=== PATIENT | male | born 1960 | race Caucasian/White ===

== ENCOUNTER 2024-07-01 08:08 | Inpatient (IN) | payer OTHER, SELFPAY ==
[2024-07-01] VITALS (26 sets, daily range): BP systolic 150–200; BP diastolic 74–98; PULSE 63–100; TEMP 36.4–36.7; O2SAT 89–99; BMI 24.2; BMI 24.4
--- NOTE | 2024-07-01 08:20 | ECG_ITS ---
[facility] Test Date: 2024-07-01 Pat Name: ANISH IRAHETA Department: Room: - Gender: Male Ict Development Manager: : 1960 Requested By: [id number] Order Number: [id number] Reading MD: GET ONTIVEROS Measurements Intervals [facility] Rate: 91 P: 71 MO: 152 QRS: 65 QRSD: 94 T: 99 QT: 358 QTc: 407 Interpretive Statements 1100 Sinus rhythm 3334 Anteroseptal myocardial infarction, age undetermined 6120 Possible right atrial enlargement 6220 Possible left atrial enlargement 9150 abnormal ECG No previous ECG available for comparison Electronically Signed On 07-01-2024 12:10:02 EDT by GET ONTIVEROS
[2024-07-01 08:35] LABS: Basophils Percent Auto 0.3 % (0.2-2.0); Eosinophils Percent Auto 0.3 % (0.9-7.0); Hematocrit 45.5 % (42.0-54.0); Hemoglobin 15.6 g/dL (14.0-18.0); Immature Granulocytes Abs Auto 0.01 10^3/uL (0.00-0.03); Immature Granulocytes Pct Auto 0.1 % (0.0-0.5); Lymphocytes Absolute Auto 1.2 10^3/uL (1.2-3.8); Lymphocytes Percent Auto 17.1 % (20.5-60.0); Mean Corpuscular HGB Conc 34.3 g/dL (29.9-35.2); Mean Corpuscular Hemoglobin 31.5 pg (25.9-34.0); Mean Corpuscular Volume 91.7 fL (80.0-94.0); Mean Platelet Volume 9.4 fL (9.5-13.5); Monocytes Absolute Auto 0.4 10^3/uL (0.3-0.8); Monocytes Percent Auto 5.9 % (1.7-12.0); Neutrophils Absolute Auto 5.5 10^3/uL (1.4-6.5); Neutrophils Percent Auto 76.3 % (43.0-75.0); Platelet Count 251 10^3/uL (150-450); Red Blood Count 4.96 10^6/uL (4.70-6.10); White Blood Count 7.3 10^3/uL (4.0-11.0)
[2024-07-01 08:45] LABS: Magnesium 2.1 mg/dL (1.8-2.4)
[2024-07-01 08:46] LABS: Ethanol <3 mg/dL
[2024-07-01 08:49] LABS: INR 0.98; Prothrombin Time 10.4 sec (9.0-11.6)
[2024-07-01 08:51] LABS: Alanine Aminotransferase 31 U/L (16-63); Alkaline Phosphatase 98 U/L (46-116); Anion Gap 12.3; Aspartate Amino Transferase 21 U/L (15-37); BUN Creatinine Ratio 15.5; Bilirubin Total 0.4 mg/dL (0.2-1.0); Calcium 9.2 mg/dL (8.5-10.1); Carbon Dioxide 25.4 mmol/L (21.0-32.0); Chloride 104 mmol/L (98-107); Estimated GFR (African America >60 (>=60 mL/min/1.73m^2); Estimated GFR (Non-African Ame >60 (>=60 mL/min/1.73m^2); Glucose 133 mg/dL (74-106); Potassium 3.7 mmol/L (3.5-5.1); Sodium 138 mmol/L (136-145)
[2024-07-01 08:55] LABS: Troponin I High Sensitivity 9.1 pg/mL (4.0-76.1)
--- NOTE | 2024-07-01 09:13 | ED_ITS ---
HPI - Dizziness General Chief Complaint: Dizziness Stated Complaint: BLURRY VISION Time Seen by Provider: 07/01/24 08:15 Source: patient Mode of arrival: walk-in Limitations: no limitations History of Present Illness HPI Narrative: The patient is a 63 years old male who does not take any medication at home. Has a history of coronary artery disease states his most multiple stent in addition to history of smoking cigarette 1 and half pack of cigarette daily, he also had a history of old stroke 5 years ago. Patient is coming to us with the complaint of blurry vision bilaterally he mentioned that he noticed that yesterday morning he woke up, when he went to sleep the day before yesterday on Friday he was not having any complaint. Patient frequently have headaches and usually the headache is behind his eyes and he did had some headache yesterday. He also mentioned that having some chest pressure frequently during the week. The patient does not take any blood pressure medication because he ran out of it and he mentioned that he did not fill it because of financial issues The patient is complaining of left hand weakness that he mentioned that this is all due to his history of carpal tunnel Related Data Home Medications ?Medication ?Instructions ?Recorded ?Confirmed No Known Home Medications 07/01/24 07/01/24 Allergies Allergy/AdvReac Type Severity Reaction Status Date / Time No Known Drug Allergies Allergy Verified 07/01/24 08:12 Review of Systems ROS Status of ROS 10 or more systems reviewed and unremark able except as noted in history and below [facility] Medical History (Updated 07/01/24 @ 09:45 by Lawrence Beth) History of CVA (cerebrovascular accident) ?Z86.73 - Personal history of transient ischemic attack (TIA), and cerebral infarction without residual deficits (ICD-10) Hypertension ?I10 - Essential (primary) hypertension (ICD-10) Surgical History (Updated 07/01/24 @ 08:43 by Lawrence Beth) H/O heart artery stent ?Z95.5 - Presence of coronary angioplasty implant and graft (ICD-10) Social History Little interest or pleasure in doing things: not at all Feeling down, depressed, or hopeless: not at all Exam Narrative Exam Narrative: Nurses notes and vital signs reviewed and patient is not hypoxic. General: Well-appearing and in no apparent distress. Skin: Warm, dry, no pallor noted. No rash. Head: Normocephalic, atraumatic. Neck: Supple, non-tender. Eye: Pupils are equal, round and EOMI. No scleral icterus. Ears, Nose, Mouth, and Throat: TM are clear, no nasal mucosal hypertrophy. Oral mucosa is moist, no posterior oropharynx erythema, uvula is mid-line Cardiovascular: Regular Rate and Rhythm without murmur, gallop or rub. Respiratory: No accessory muscle use or respiratory distress. Lungs are clear to auscultation, no wheezing, rales or rhonchi Chest Wall: no tenderness Back: No midline thoracic or lumbar vertebral tenderness. No CVA tenderness Musculoskeletal: normal ROM, no calf or popliteal tenderness, no lower extremity edema/swelling GI: Abdomen is soft, non-distended. Normal bowel sounds. No masses appreciated. No tenderness to palpation. No rebound, guarding, or rigidity noted. Neurological: A&O x4. No cranial nerve dysfunction observed. No truncal ataxia. Moves all extremities. Sensation intact. Psychiatric: Cooperative and interactive. Normal mood and affect. Constitutional Vital Signs, click to edit/add: Last Vital Signs Temp 98.1 F 07/01/24 08:14 Pulse 82 07/01/24 09:52 Resp 20 07/01/24 09:52 BP 180/80 H 07/01/24 09:52 Pulse Ox 97 07/01/24 09:52 O2 Del Method Room Air 07/01/24 09:52 Course Vital Signs Vital signs: Vital Signs Temperature 98.1 F 07/01/24 08:14 Pulse Rate 94 H 07/01/24 08:14 Respiratory Rate 20 07/01/24 08:14 Blood Pressure 200/98 H 07/01/24 08:14 Pulse Oximetry 99 07/01/24 08:14 Oxygen Delivery Method Room Air 07/01/24 08:14 Temperature 98.1 F 07/01/24 08:14 Pulse Rate 82 07/01/24 09:52 Respiratory Rate 20 07/01/24 09:52 Blood Pressure 180/80 H 07/01/24 09:52 Pulse Oximetry 97 07/01/24 09:52 Oxygen Delivery Method Room Air 07/01/24 09:52 MDM - Dizziness MDM Narrative Medical decision making narrative: The patient NIH score upon arrival is 0--------- and his last known well is Friday evening which is more than [address] head shows multiple strokes none of them is new It was noted that the patient blood pressure is 200 systolic Patient case was discussed with teleneurology and Dr Kimball recommended to con trol the blood pressure to around 180 right now systolic, and make sure that the patient started on aspirin and he will be admitted to get the further workup CBC and chemistry showed no acute pathology The patient EKG showing sinus rhythm with a heart rate of [address] elevation or depression Troponin was negative The patient vision acuity was 20/100 in both eyes and 20/100 in each eye as well by itself The patient blood pressure is controlled with hydralazine in the ER 1 dose of 10 mg IV and mentioned that after his blood pressure getting control that his blurry vision is at his baseline blurry vision due to near sight vision hx as he wear glassed for near vision Patient case discussed with and she agrees on admitting the pt Lab Data Labs: Lab Results 07/01/24 Range/Units 08:23 WBC 7.3 (4.0-11.0) 10^3/uL RBC 4.96 (4.70-6.10) 10^6/uL Hgb 15.6 (14.0-18.0) g/dL Hct 45.5 (42.0-54.0) % MCV 91.7 (80.0-94.0) fL MCH 31.5 (25.9-34.0) pg MCHC 34.3 (29.9-35.2) g/dL RDW 14.0 (11.0-15.0) % Plt Count 251 (150-450) 10^3/uL MPV 9.4 L (9.5-13.5) fL Neut % (Auto) 76.3 H (43.0-75.0) % Lymph % (Auto) 17.1 L (20.5-60.0) % [place] % (Auto) 5.9 (1.7-12.0) % Eos % (Auto) 0.3 L (0.9-7.0) % Baso % (Auto) 0.3 (0.2-2.0) % Neut # (Auto) 5.5 (1.4-6.5) 10^3/uL Lymph # (Auto) 1.2 (1.2-3.8) 10^3/uL [place] # (Auto) 0.4 (0.3-0.8) 10^3/uL Eos # (Auto) 0.0 (0.0-0.7) 10^3/uL Baso # (Auto) 0.0 (0.0-0.1) 10^3/uL Abs Immat Gran (auto) 0.01 (0.00-0.03) 10^3/uL Imm/Tot Granulo (auto) 0.1 (0.0-0.5) % PT 10.4 (9.0-11.6) sec INR 0.98 Sodium 138 (136-145) mmol/L Potassium 3.7 (3.5-5.1) mmol/L Chloride 104 (98-107) mmol/L Carbon Dioxide 25.4 (21.0-32.0) mmol/L Anion Gap 12.3 BUN 15.0 (7.0-18.0) mg/dL Creatinine 0.97 (0.70-1.30) mg/dL Est GFR ( Amer) >60 (>=60 mL/min/1.73m^2) Est GFR (Non-Af Amer) >60 (>=60 mL/min/1.73m^2) BUN/Creatinine Ratio 15.5 Glucose 133 H (74-106) mg/dL Calcium 9.2 (8.5-10.1) mg/dL Magnesium 2.1 (1.8-2.4) mg/dL Total Bilirubin 0.4 (0.2-1.0) mg/dL AST 21 (15-37) U/L ALT 31 (16-63) U/L Alkaline Phosphatase 98 (46-116) U/L Troponin I High Sens 9.1 (4.0-76.1) pg/mL Total Protein 8.0 (6.4-8.2) g/dL Albumin 4.0 (3.4-5.0) g/dL Globulin 4.0 g/dL Albumin/Globulin Ratio 1.0 Ethanol Quant <3 mg/dL Discharge Plan Discharge Chief Complaint: Dizziness Clinical Impression: Blurred vision, bilateral, Hypertensive emergency, Stroke-like symptom Time of Disposition Decision: 09:29 Prescriptions / Home Meds: No Action No Known Home Medications Print Language: Arabic Referrals: Physician,Non-Staff, MD [Primary Care Provider] - 1 week
[2024-07-01] MEDS: ASPIRIN 81 MG TAB.CHEW 324 MG PO (09:23)
[2024-07-01] MEDS: HYDRALAZINE HCL 20 MG/ML VIAL 10 MG IVP (09:23)
--- NOTE | 2024-07-01 10:51 | CA_ITS ---
Patient Name: ANISH IRAHETA MR#: [id number] : 1960 Exam Date: 07/01/2024 Ordering Doctor: GAIL RIZVI . ECHOCARDIOGRAM REPORT PROCEDURE: CA ECHO DOPPLER COMPLETE INDICATIONS: Hypertensive urgency, h/o CVA, cardiac stents, smoker COMPARISON: None. DESCRIPTION: COMPLETE ECHOCARDIOGRAM Real-time transthoracic echocardiography with 2D, M-mode, spectral and color flow Doppler performed. QUALITY: Technically difficult due patient's condition. LEFT VENTRICLE: Normal chamber size. Mild concentric left ventricular hypertrophy. LV EF: Global left ventricular systolic function is difficult to assess but appears preserved; visually estimated ejection fraction is 55-60%. Unable to assess regional wall motion abnormalities. DIASTOLIC: Unable to assess diastolic function. ATRIAL SEPTUM: Visually appears intact. LEFT ATRIUM: Mild dilatation. RIGHT ATRIUM: Normal chamber size. RIGHT VENTRICLE: Normal chamber size. Normal systolic function. TRICUSPID VALVE: Normal mobility and thickness. No stenosis with no regurgitation. Unable to assess right-sided pressures due to lack of measurable tricuspid regurgitation. MITRAL VALVE: Normal mobility and thickness. No evidence of mitral valve stenosis. There is no mitral annular calcification. No mitral regurgitation. AORTIC VALVE: Normal trileaflet appearance. Thickened aortic valve. Normal leaflet mobility. No evidence of aortic valve stenosis. No aortic regurgitation. AORTIC ROOT: Normal diameter and appearance. Ascending aorta is normal in size. PULMONIC VALVE: Normal thickness and mobility. No stenosis. No regurgitation. PERICARDIUM: No evidence of pericardial effusion. IVC: Collapses with inspirations. IVC is normal in size. CONCLUSION: 1. Global left ventricular systolic function is difficult to assess but appears preserved; visually estimated ejection fraction is 55-60% 2. Normal right ventricular size and systolic function 3. Mild left atrial dilatation 4. Mild left ventricular hypertrophy 5. Valves are poorly seen; no significant valvular abnormalities Adult Echocardiography Procedure Report Left Ventricle LVEDD (3.7 - 5.6 cm): 4.41 cm LVESD (2.2 - 4.0 cm): 3.05 cm LVIVS thickness (0.6 - 1.2 cm): 1.18 cm LVPW thickness (0.5 - 1.0 cm): 1.27 cm e': 0.11 m/s E - e': 4.46 LVOT Max Gradient: 2.27 mm[Hg] LVOT Area (cm2): 0.75 m/s Peak Velocity (LVOT): 0.75 m/s Mean Velocity (LVOT): 0.48 m/s LVOT Diameter 2.38 cm Left Atrium LA Volume Index (2D A2C): 41.34 ml/m2 Left Atrium Systolic Dimension: 2.89 cm Mitral Valve MV E to A Ratio: 0.75 Mitral Valve A-Wave Peak Velocity: 0.66 m/s Mitral Valve E-Wave Peak Velocity: 0.50 m/s Right Ventricle Aorta AO Root Diam: 3.61 cm Ascending Ao Diam: 3.48 cm Aortic Valve AoV Area (Peak David): 2.55 cm2, 2.55 cm2 AoV Area (VTI): 3.31 cm2, 3.31 cm2 Peak Velocity(Antegrade Flow): 1.31 m/s Peak Gradient(Antegrade Flow): 6.86 mm[Hg] Mean Velocity(Antegrade Flow): 0.75 m/s Mean Gradient(Antegrade Flow): 2.73 mm[Hg] Velocity Time Integral: 23.48 cm Tricuspid Valve Pulmonic Valve Peak Velocity: 0.86 m/s Peak Gradient: 2.96 mm[Hg] Right Atrium Right Atrium Systolic Pressure: 46.01 ml, 46.01 ml Dictated by: Cesia Coffman M.D. on 07/01/2024 at 15:00 Approved by: Cesia Coffman M.D. on 07/01/2024 at 15:03
--- NOTE | 2024-07-01 10:57 | P.HP_ITS ---
HPI H&P: HPI History of Present Illness Chief complaint: BLURRY VISION, STROKE LIKE SYMPTOMS, HYPERTENSIVE Narrative: Patient is a 63 y.o white male with past medical history of Hypertension, medical non compliance, CAD s/p stent, and prior ischemic CVA in 2012. He received TPK at the time of his acute stroke in 2012 so had no residual effects. He presented to the ER today with sudden onset of blurred vision. 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 Both became blurry. He has carpal tunnel in the left hand so that hand is always weaker but did not experience any worsening weakness in the arms or legs. No slurred speech, or problems concentrating. He admits to medical noncompliance saying he never checks his BP, smokes about 1-2 ppd, and does not watch his diet. Both of his daughters were present at bedside today. Blurriness of vision has improved since admission. No other issues or complaints at this time. findings: WBC's 7.3, Hb 15.6, INR 0.98, Normal TSH, Lipids 227/59/136/162, ha1c 5.4, Patient's BP was 180/80, given a dose of IV hydralazine. CT HEAD WITHOUT showed atrophy, small vessel ischemic disease with multiple old strokes. Telestroke was consulted recommended Aspirin 324mg x 1. Patient was admitted. Opioid HPI Opioid Management Most Recent Pain and Opioid Data: Last Pain Assessment 07/01/24 12:00 Last ORT Total Score 4 07/01/24 10:35 07/01/24 Last ORT Risk Category Moderate Risk 07/01/24 10:35 07/01/24 Review of Systems ROS Narrative ROS: a complete review of systems were reviewed with patient and are positive as below or listed in History of Chief Complaint. General: no fever, chills, night sweats Head: no headache, trauma, but visual changes/blurriness Skin: no reported rashes, itching or sores Eyes: no blurriness of vision Ears: no reported hearing loss, vertigo, earache, or tinnitus Throat: no sore throat, hoarseness, swelling of neck, or tongue pain Heart: no chest pain Lungs: no shortness of breath or cough GI: no diarrhea or vomiting/nausea Urinary: no urinary urgency, frequency or pain Neuro: no numbness or tingling HEM: no bleeding issues or bruising ENDO: no thyroid problems Psych: no anxiety or depression PFSH PFSH Medical History History of CVA (cerebrovascular accident) ?Z86.73 - Personal history of transient ischemic attack (TIA), and cerebral infarction without residual deficits (ICD-10) Hypertension ?I10 - Essential (primary) hypertension (ICD-10) Surgical History (Updated 07/01/24 @ 08:43 by Lawrence Beth) H/O heart artery stent ?Z95.5 - Presence of coronary angioplasty implant and graft (ICD-10) Social History Highest level of school completed/degree received: GED or equivalent Little interest or pleasure in doing things: not at all Feeling down, depressed, or hopeless: not at all Meds Home Medications and Allergies Home Medications ?Medication ?Instructions ?Recorded ?Confirmed ?Type No Known Home Medications 07/01/24 07/01/24 History Allergies Allergy/AdvReac Type Severity Reaction Status Date / Time No Known Drug Allergies Allergy Verified 07/01/24 08:12 Exam Narrative Exam Narrative: General: Patient is alert, and oriented to person, place and time with normal affect, proper hygiene Skin: no visible rashes, or ulcers Head: atraumatic, acephalic Eyes: PERRLA, no nystagmus present, conjunctiva clear, no scleral icterus Ears: normal gross auditory acuity Nose: symmetric, no discharge, no maxillary or frontal sinus tenderness Mouth/Throat: poor dentition Neck: no masses palpated, normal thyroid Heart: Normal rate and rhythm, no murmurs/rubs/gallops Lungs: no audible wheezes, crackles and normal breath sounds all lung weaver Abdomen: Normal audible bowel sounds, no distension, No palpable masses, no organomegaly, no rebound/guarding/ or rigidity Musculoskeletal: no swelling bilateral lower extremities Neuro: CN II-X grossly intact, normal sensation upper and lower extremities Constitutional Vital Signs, click to edit/add: Last Vital Signs Temp 98.1 F 07/01/24 08:14 Pulse 82 07/01/24 10:00 Resp 16 07/01/24 10:00 BP 173/82 H 07/01/24 10:00 Pulse Ox 96 07/01/24 10:00 O2 Del Method Room Air 07/01/24 09:52 Neuro Coordination/balance: [id number] test normal Speech: speech normal Gait (neuro): normal gait Motor exam: strength 5/5 throughout, no pronator drift, no tremor noted, muscle tone normal throughout and no movement abnormalities noted Results Labs Labs: Short CBC 07/01/24 Range/Units 08:23 WBC 7.3 (4.0-11.0) 10^3/uL Hgb 15.6 (14.0-18.0) g/dL Hct 45.5 (42.0-54.0) % Plt Count 251 (150-450) 10^3/uL BMP 07/01/24 08:23 Sodium 138 Potassium 3.7 Chloride 104 Carbon Dioxide 25.4 BUN 15.0 Creatinine 0.97 Glucose 133 H Calcium 9.2 Liver Function 07/01/24 Range/Units 08:23 Total Bilirubin 0.4 (0.2-1.0) mg/dL AST 21 (15-37) U/L ALT 31 (16-63) U/L Alkaline Phosphatase 98 (46-116) U/L Albumin 4.0 (3.4-5.0) g/dL Assessment and Plan Assessment and Plan (1) Acute stroke due to occlusion of left posterior cerebral artery: Assessment and Plan: continue neurochecks, MRI positive for acute stroke of the left occipital and left parietal lobe. Check echo and carotid Artery ultrasounds. Check lipids, ha1c, TSH. Start Aspirin 324mg daily, start Lipitor, start coreg for BP control. Start Plavix. Neurostroke consult. Pt/ot (2) Hypertensive emergency: Assessment and Plan: given hydralazine in the ER. Start Coreg 3.125mg BID, monitor closely as do not want to decrease too fast with acute stroke (3) Blurred vision, bilateral: Assessment and Plan: secondary to 1 and 2 (4) Hypertension: Assessment and Plan: history of noncompliance with medications. start coreg Qualifiers: Hypertension type: primary hypertension Qualified Code(s): I10 - Essential (primary) hypertension (5) H/O heart artery stent: Assessment and Plan: check lipids, not taking medications (6) Tobacco abuse: Assessment and Plan: currently 1 PPD smoker, add nicotine patch (7) CAD (coronary artery disease): Assessment and Plan: start lipitor, aspirin, plavix Qualifiers: Coronary Disease-Associated Artery/Lesion type: [place] artery [place] vs. transplanted heart: [place] heart Associated angina: without angina Qualified Code(s): I25.10 - Atherosclerotic heart disease of [place] coronary artery without angina pectoris Plan patient is a full code start Lovenox for DVT prophylaxis Patient is inpatient status and is expected to stay 1-2 days for Acute stroke.
[2024-07-01 11:11] LABS: Estimated Average Glucose 108 mg/dL; Glycohemoglobin A1C 5.4 % (4.5-6.2)
[2024-07-01 11:55] LABS: Chol HDL Ratio 3.8; Cholesterol 227 mg/dL (<=200); HDL Cholesterol 59 mg/dL (40-60); Thyroid Stimulating Hormone 1.577 uIU/mL (0.358-3.740); Triglycerides 162 mg/dL (<=150); VLDL CHOLESTEROL 32.4 mg/dL
[2024-07-01] MEDS: NICOTINE 21 MG PATCH.TD24 TD (12:27)
[2024-07-01] MEDS: ENOXAPARIN SODIUM 40 MG/0.4 ML SYRINGE SUBQ (12:27)
--- NOTE | 2024-07-01 13:20 | SWNOTE1 ---
BECKIE met with pt and 2 daughters in pt's room. BECKIE consulted for assistance with Medicare and advanced directives. Pt would like to complete HCPOA today. BECKIE provided pt with Medicare 101 booklet. BECKIE advised pt and daughters that he will have to call or get online. BECKIE showed and provided pt and daughters with phone numbers and website to get started on signing him up for Medicare. BECKIE then completed HCPOA with pt. BECKIE made copy for chart and for pt and gave patient booklet as well. Pt does live at home by himself. Pt is independent, still drives, cooks, cleans, etc. Pt has no discharge concerns at this time. SW to follow as needed.
[2024-07-01] MEDS: CLOPIDOGREL BISULFATE 75 MG TABLET PO (14:22)
[2024-07-01] MEDS: CARVEDILOL 3.125 MG TABLET PO ×2 (14:22→21:23)
[2024-07-01] MEDS: ATORVASTATIN CALCIUM 40 MG TABLET 80 MG PO (21:23)
[2024-07-02] VITALS (11 sets, daily range): BP systolic 128–160; BP diastolic 75–80; PULSE 59–74; TEMP 36.7–36.9; O2SAT 94–95
[2024-07-02 05:53] LABS: Basophils Percent Auto 0.5 % (0.2-2.0); Eosinophils Absolute Auto 0.1 10^3/uL (0.0-0.7); Eosinophils Percent Auto 1.2 % (0.9-7.0); Hematocrit 44.1 % (42.0-54.0); Hemoglobin 14.6 g/dL (14.0-18.0); Immature Granulocytes Abs Auto 0.01 10^3/uL (0.00-0.03); Immature Granulocytes Pct Auto 0.2 % (0.0-0.5); Lymphocytes Percent Auto 33.4 % (20.5-60.0); Mean Corpuscular HGB Conc 33.1 g/dL (29.9-35.2); Mean Corpuscular Hemoglobin 30.6 pg (25.9-34.0); Mean Corpuscular Volume 92.5 fL (80.0-94.0); Mean Platelet Volume 9.8 fL (9.5-13.5); Monocytes Absolute Auto 0.5 10^3/uL (0.3-0.8); Monocytes Percent Auto 8.1 % (1.7-12.0); Neutrophils Absolute Auto 3.4 10^3/uL (1.4-6.5); Neutrophils Percent Auto 56.6 % (43.0-75.0); Platelet Count 247 10^3/uL (150-450); Red Blood Count 4.77 10^6/uL (4.70-6.10); Red Cell Distribution Width 13.9 % (11.0-15.0)
[2024-07-02 06:10] LABS: Alanine Aminotransferase 25 U/L (16-63); Albumin Level 3.5 g/dL (3.4-5.0); Alkaline Phosphatase 92 U/L (46-116); Anion Gap 9.1; Aspartate Amino Transferase 21 U/L (15-37); BUN Creatinine Ratio 13.6; Bilirubin Total 0.6 mg/dL (0.2-1.0); Calcium 8.8 mg/dL (8.5-10.1); Carbon Dioxide 27.9 mmol/L (21.0-32.0); Chloride 106 mmol/L (98-107); Estimated GFR (African America >60 (>=60 mL/min/1.73m^2); Estimated GFR (Non-African Ame >60 (>=60 mL/min/1.73m^2); Globulin 3.6 g/dL; Glucose 105 mg/dL (74-106); Sodium 139 mmol/L (136-145); Total Protein 7.1 g/dL (6.4-8.2)
[2024-07-02] MEDS: ASPIRIN 81 MG TAB.CHEW PO (08:08)
[2024-07-02] MEDS: CLOPIDOGREL BISULFATE 75 MG TABLET PO (08:08)
[2024-07-02] MEDS: CARVEDILOL 3.125 MG TABLET PO (08:08)
[2024-07-02] MEDS: NICOTINE 21 MG PATCH.TD24 TD (08:09)
[2024-07-02] MEDS: ENOXAPARIN SODIUM 40 MG/0.4 ML SYRINGE SUBQ (08:09)
--- NOTE | 2024-07-02 08:11 | PC.NURSE ---
Tele stroke paged
--- NOTE | 2024-07-02 08:55 | P.DS_ITS ---
DS: Providers Provider Date of admission: 07/01/24 10:20 Primary care physician: Non-Staff PhysicianMD Attending physician on admission: Rosita Patterson Consults: 07/01/24 Consult to Health Information Coder Routine Reason for consult:: Advanced Directives Other reason:: would like help signing up for medicare? 07/01/24 09:04 Consult to Telestroke Routine Reason for consultation: stroke like symptoms Has provider been notified: Yes 07/01/24 10:51 Occupational Therapy Eval and Treat Routine Reason for consultation: TIA, Blurriness of vision, weakness Has provider been notified: No Physical Therapy Eval and Treat Routine Reason for consultation: TIA, Blurriness of vision, weakness Has provider been notified: No Discharging clinician: Rosita Patterson DS: Diagnosis Discharge Diagnosis (1) Acute stroke due to occlusion of left posterior cerebral artery: (2) Hypertensive emergency: (3) Blurred vision, bilateral: (4) Hypertension: Qualifiers: Hypertension type: primary hypertension Qualified Code(s): I10 - Essential (primary) hypertension (5) H/O heart artery stent: (6) Tobacco abuse: (7) CAD (coronary artery disease): Qualifiers: Associated angina: without angina Coronary Disease-Associated Artery/Lesion type: [place] artery [place] vs. transplanted heart: [place] heart Qualified Code(s): I25.10 - Atherosclerotic heart disease of [place] coronary artery without angina pectoris DS: Summary Hospital Course Hospital Course: Patient is a 63 y.o white male with past medical history of Hypertension, medical non compliance, CAD s/p stent, and prior ischemic CVA in 2012. He received TPK at the time of his acute stroke in 2012 so had no residual effects. He presented to the ER 07/01/24 with sudden onset of blurred vision. 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 Both became blurry. He has carpal tunnel in the left hand so that hand is always weaker but did not experience any worsening weakness in the arms or legs. No slurred speech, or problems concentrating. He admits to medical noncompliance saying he never checks his BP, smokes about 1-2 ppd, and does not watch his diet. Both of his daughters were present at bedside and one daughter today. Blurriness of vision has improved since admission and he is no longer having. No other issues or complaints at this time. Findings: WBC's 7.3, Hb 15.6, INR 0.98, Normal TSH, Lipids 227/59/136/162, ha1c 5.4, Patient's BP was 180/80, given a dose of IV hydralazine and started on Coreg 3.125mg BID, BP has been 128/75. CT HEAD WITHOUT showed atrophy, small vessel ischemic disease with multiple old strokes. MRI showed acute stroke of the left occipital and left parietal lobe. Check echo- normal EF 65% with some LVH and carotid Artery ultrasounds were negative for stenosis. Tele Stroke recommended CTA of the head and neck prior to discharge. He will be discharged home today to return to work Friday. He will establish with PCP in [place]. [facility] will call him with clinic follow up. He will be placed on lipitor 80mg daily, Coreg 3.125mg BID, Aspirin 81mg daily, and plavix 75mg daily. He may return to the ER with any worsening signs or symptoms. Patient will be discharged today in stable. Condition. I also recommended low salt diet and smoking cessation. Status at Discharge Functional status at discharge: independent ambulation Overall status at discharge: patient is back to baseline Time Spent with Patient Time attestation: Total time spent providing and/or coordinating discharge services: Time spent: greater than 30 minutes Exam Narrative Exam Narrative: General: Patient is alert, and oriented to person, place and time with normal affect, proper hygiene Skin: no visible rashes, or ulcers Head: atraumatic, acephalic Eyes: PERRLA, no nystagmus present, conjunctiva clear, no scleral icterus Ears: normal Tympanic Membrane, normal gross auditory acuity Nose: symmetric, no discharge, no maxillary or frontal sinus tenderness Mouth/Throat: no erythema, exudate, or tonsillar enlargement, normal dentition Neck: no masses palpated, normal thyroid, no JVD or audible carotid bruits Heart: Normal rate and rhythm, no murmurs/rubs/gallops Lungs: no audible wheezes, crackles and normal breath sounds all lung weaver Abdomen: Normal audible bowel sounds, no distension, No palpable masses, no organomegaly, no rebound/guarding/ or rigidity Musculoskeletal: no swelling bilateral lower extremities Vascular: Normal carotid, radial, femoral, posterior tibial, and dorsalis pedis pulses Lymph: no supraclavicular, axillary, or anterior/posterior cervical adenopathy Neuro: CN II-X grossly intact, normal sensation upper and lower extremities Constitutional Vital Signs, click to edit/add: Last Vital Signs Temp 98.0 F 07/02/24 07:39 Pulse 67 07/02/24 08:00 Resp 16 07/02/24 07:40 BP 128/75 07/02/24 07:39 Pulse Ox 94 L 07/02/24 07:39 O2 Del Method Room Air 07/02/24 07:39 DS: Data Data Completed and Pending Labs on day of discharge: Labs from last 24 hours 07/02/24 07/01/24 05:23 08:23 WBC 6.0 RBC 4.77 Hgb 14.6 Hct 44.1 MCV 92.5 MCH 30.6 MCHC 33.1 RDW 13.9 Plt Count 247 MPV 9.8 Neut % (Auto) 56.6 Lymph % (Auto) 33.4 [place] % (Auto) 8.1 Eos % (Auto) 1.2 Baso % (Auto) 0.5 Neut # (Auto) 3.4 Lymph # (Auto) 2.0 [place] # (Auto) 0.5 Eos # (Auto) 0.1 Baso # (Auto) 0.0 Abs Immat Gran (auto) 0.01 Imm/Tot Granulo (auto) 0.2 Sodium 139 Potassium 4.0 Chloride 106 Carbon Dioxide 27.9 Anion Gap 9.1 BUN 12.0 Creatinine 0.88 Est GFR ( Amer) >60 Est GFR (Non-Af Amer) >60 BUN/Creatinine Ratio 13.6 Glucose 105 Estimat Average Glucose 108 Hemoglobin A1c 5.4 Calcium 8.8 Total Bilirubin 0.6 AST 21 ALT 25 Alkaline Phosphatase 92 Troponin I High Sens 9.1 Total Protein 7.1 Albumin 3.5 Globulin 3.6 Albumin/Globulin Ratio 1.0 Triglycerides 162 H Cholesterol 227 H LDL Cholesterol, Calc 136.0 VLDL Cholesterol 32.4 HDL Cholesterol 59 Cholesterol/HDL Ratio 3.8 TSH 1.577 Discharge Plan Discharge Disposition: Home, Self-Care Discharge Medications: New atorvastatin 40 mg Tablet 80 mg PO QHS 90 Days Qty: 180 0RF clopidogrel 75 mg Tablet 75 mg PO QD 30 Days Qty: 30 0RF carvedilol 3.125 mg Tablet 3.125 mg PO BID 30 Days Qty: 60 0RF aspirin 81 mg Tablet,Chewable 81 mg PO QD 90 Days Qty: 90 0RF Activity: increase activity as tolerated Diet: low salt diet Print Language: [place] Patient Instructions: Aspirin (By mouth), Atorvastatin (By mouth), Carvedilol (By mouth), Clopidogrel (By mouth), Stroke (DC) Forms: Portal Instructions Follow Up Appointments: [facility] will contact you about follow up appointment Follow up with PCP 1-2 weeks Discharge location: Home, Given work note to return to work wednesday 07/05
--- NOTE | 2024-07-02 10:27 | PC.NURSE ---
tele stroke paged again
--- NOTE | 2024-07-02 11:20 | CM.NOTE ---
Rounds made with Dr. Patterson. Dr. Patterson reviews plan of care with Tom. Potential discharge later today after Neurology Consult. Verbalizes understanding.
--- NOTE | 2024-07-02 12:04 | PC.NURSE ---
telestroke consult completed. RN provided them with attendings number for recommendations
--- NOTE | 2024-07-06 14:11 | CM.DCFOLLOWU ---
1st attempt 07/06/24, no answer
== END 2024-07-02 15:00 | disposition home or self-care (01) | DRG 65 ==
LOC: ER 08:17 → MS 10:24
PROVIDERS: Admitting Provider Family Medicine; Emergency Provider Emergency Medicine; Visit Provider Family Medicine
DX: I63.532 Cerebral infarction due to unspecified occlusion or stenosis of left posterior cerebral artery (principal); I16.1 Hypertensive emergency; H53.8 Other visual disturbances; I10 Essential (primary) hypertension; F17.210 Nicotine dependence, cigarettes, uncomplicated; Z95.5 Presence of coronary angioplasty implant and graft; I25.10 Atherosclerotic heart disease of native coronary artery without angina pectoris; R29.700 NIHSS score 0; Z91.199 Patient's noncompliance with other medical treatment and regimen due to unspecified reason; Z91.119 Patient's noncompliance with dietary regimen due to unspecified reason
CPT/HCPCS: 36415; 70450; 70496; 70498; 70551; 80053; 80061; 80307; 80320; 83036; 83735; 84443; 84484; 85025; 85610; 93005; 93306; 93880; 96374; 97161; 99285; 99406; J0360; J1650; Q9967